=== PATIENT | female | born 1965 | race Caucasian/White ===

== ENCOUNTER → 2022-06-28 | Outpatient (CLI) | payer MEDICAID ==
--- NOTE | 2022-06-29 07:52 | MM ---
Reason for Exam: Screening (asymptomatic). Last mammogram was performed 2 year(s) and 8 month(s) ago. Patient History: Menarche at age 13. First Full-Term at age 23. Hysterectomy at age 50. Postmenopausal. Paternal grandmother had breast cancer, age 75. Risk Values: Jessi 5 year model risk: 1.1%. NCI Lifetime model risk: 6.3%. Prior Study Comparison: 08/28/2018 Bilateral Screening Mammogram, [facility]. 10/28/2019 Bilateral Screening Mammogram, [facility]. Tissue Density: The breast tissue is heterogeneously dense. This may lower the sensitivity of mammography. Findings: Analyzed By CAD. There is no suspicious group of microcalcifications or new suspicious mass in either breast. Overall Assessment: Negative, BI-RAD 1 Management: Screening Mammogram of both breasts in 1 year. A clinical breast exam by your physician is recommended on an annual basis and results should be correlated with mammographic findings. Electronically signed and approved by: Hamlet Yu M.D. Radiologis
== END | disposition home or self-care (01) ==
LOC: RADMAMWWP 11:40
PROVIDERS: ATTEND Family Medicine
DX: Z12.31 Encounter for screening mammogram for malignant neoplasm of breast (principal); Z78.0 Asymptomatic menopausal state; Z80.3 Family history of malignant neoplasm of breast
CPT/HCPCS: 77063; 77067

== ENCOUNTER → 2022-09-10 | Outpatient (CLI) | payer MEDICAID ==
--- NOTE | 2022-09-10 12:24 | XR ---
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 COMPARISON: None TECHNIQUE: Lateral and oblique views of the sternum FINDINGS: No evidence of fracture. The visualized portions of the chest are unremarkable. IMPRESSION: No acute osseous pathology.
[2022-09-10 16:08] LABS: Basophils # (A) 0.06 X 10*3/uL; Basophils % (A) 1.2 %; Eosinophils # (A) 0.28 X 10*3/uL; Eosinophils % (A) 5.4 %; HCT 42.5 %; HGB 13.7 d/dL; Lymphocytes # (A) 0.99 X 10*3/uL; Lymphocytes % (A) 19.1 %; MCH 31.7 pg; MCHC 32.2 d/dL; MCV 98.4 FL; Mean Platelet Volume 11.8 FL; Monocytes # (A) 0.49 X 10*3/uL; Monocytes % (A) 9.5 %; NRBC Per 100 WBC 0 X 10*3/uL; Neutrophils # (A) 3.35 X 10*3/uL; Neutrophils % (A) 64.6 %; Platelet Count 349 X 10*3/uL; RBC 4.32 X 10*6/uL; RDW 12.6 %; WBC 5.18 X 10*3/uL
[2022-09-11 08:36] LABS: ALT 18 U/L; AST 18 U/L; Albumin 4.9 d/dL; Albumin/Globulin Ratio 1.96 Ratio; Alkaline Phosphatase 85 U/L; Blood Urea Nitrogen 13.5 mg/dL; Calcium 10.8 mg/dL; Carbon Dioxide 28.9 mmol/L; Chloride 98 mmol/L; Globulin 2.5 d/dL; Glucose 107 mg/dL; Sodium 142 mmol/L; Total Bilirubin 0.6 mg/dL; Total Protein 7.4 d/dL
== END | disposition home or self-care (01) ==
LOC: LABWHC1 07:58
PROVIDERS: ATTEND Dermatology
DX: L30.8 Other specified dermatitis (principal); D86.3 Sarcoidosis of skin
CPT/HCPCS: 36415; 71120; 80053; 82164; 85025

== ENCOUNTER → 2023-10-07 | Outpatient (CLI) | payer MEDICAID ==
--- NOTE | 2023-10-08 09:36 | MM ---
Reason for Exam: Screening (asymptomatic). Last mammogram was performed 1 year(s) and 4 month(s) ago. Patient History: Menarche at age 13. First Full-Term at age 23. Hysterectomy at age 50. Postmenopausal. Paternal grandmother had breast cancer, age 75. Risk Values: Jessi 5 year model risk: 1.1%. NCI Lifetime model risk: 6.2%. Prior Study Comparison: 08/28/2018 Bilateral Screening Mammogram, [facility]. 10/28/2019 Bilateral Screening Mammogram, [facility]. 06/28/2022 Bilateral MG 3D screening mammo w/cad, [facility]. Tissue Density: The breasts are heterogeneously dense, which may obscure small masses. Findings: Analyzed By CAD. There is no suspicious group of microcalcifications or new suspicious mass in either breast. Overall Assessment: Negative, BI-RAD 1 Management: Screening Mammogram of both breasts in 1 year. . Patient should continue monthly self-breast exams. A clinical breast exam by your physician is recommended on an annual basis. This exam should not preclude additional follow-up of suspicious palpable abnormalities. Note on Jessi scores and lifetime risk: 1. A Jessi score greater than 3% is considered moderate risk. If this is the case, consider specialist referral to assess eligibility for a risk reducing agent. 2. If overall lifetime risk for the development of breast cancer is 20% or higher, the patient may qualify for future screening with alternating mammogram and breast MRI. Electronically signed and approved by: David Manuel M.D. Radiologist
== END | disposition home or self-care (01) ==
LOC: RADMAMWWP 13:36
PROVIDERS: ATTEND Family Medicine
DX: Z12.31 Encounter for screening mammogram for malignant neoplasm of breast (principal); Z78.0 Asymptomatic menopausal state; Z80.3 Family history of malignant neoplasm of breast
CPT/HCPCS: 77063; 77067